=== PATIENT | female | born 1985 | race Caucasian/White ===

== ENCOUNTER → 2016-06-12 | Day surgery (SDC) | payer OTHER ==
[~2016-06-12] VITALS: Ht 170.2 cm; Wt 86.2 kg
[~2016-06-12] MED LIST: BUPIVACAINE HCL 0.25% 30 ML VIAL As Ordered ONE; GLYCOPYRROLATE INJ 0.2 MG/ML 2 ML VIAL As Ordered ONE; HYDROmorphone HCL 2 MG/ML 1ML VIAL (J1170) As Ordered ONE; KETOROLAC 60 MG/2 ML VIAL (J1885) As Ordered ONE; LR 1,000 ML IV SCH; METOCLOPRAMIDE INJ 10MG/2ML VIAL (J2765) As Ordered ONE; MIDAZOLAM INJ 2 MG/2 ML VIAL (J2250) As Ordered ONE; NEOSTIGMINE 1MG/ML 5 ML SYRINGE (J2710) As Ordered ONE; ONDANSETRON 4MG/2ML VIAL (J2405) As Ordered ONE; ONDANSETRON 4MG/2ML VIAL (J2405) IV PRN; PROPOFOL 500 MG/50 ML VIAL As Ordered ONE; ROCURONIUM BROMIDE 50 MG/5 ML VIAL As Ordered ONE; SILVER NITRATE APPLICATOR As Ordered ONE; dexameTHASONE 4 MG/ML 1ML VIAL (J1100) As Ordered ONE; ePHEDrine SULFATE 25 MG/5 ML(5MG/ML) SYRINGE As Ordered ONE; fentaNYL 100 MCG/2 ML INJECTION (J3010) As Ordered ONE; fentaNYL 100 MCG/2 ML INJECTION (J3010) IV PRN
[2016-06-12 06:44] LABS: MEAN CORPUSCULAR HEMOGLOBIN 31.1 pg (27.0-33.0); MEAN CORPUSCULAR VOLUME 91.5 fl (80.0-96.0); RED CELL DISTRIBUTION WIDTH 12.7 % (11.5-14.5); WHITE BLOOD COUNT 4.7 K/mm3 (4.0-10.0)
[2016-06-12 06:56] LABS: CONTROL LINE UCG INT CTR LINE PRESENT
[2016-06-12 11:30] VITALS: BP 94/55
--- NOTE | 2016-06-20 07:09 | RO ---
DATE OF PROCEDURE: 06/12/2016 PREOPERATIVE DIAGNOSIS: Undesired fertility. POSTOPERATIVE DIAGNOSIS: Undesired fertility. PROCEDURE: Bilateral tubal ligation and intrauterine device (IUD) removal. SURGEON: Melissa Garcia MD CONSTRUCTION WORKER: Giselle Chang MD ANESTHESIA: General. ANTIBIOTICS: None indicated. COMPLICATIONS: None. SPECIMENS: Bilateral fallopian tubes and intrauterine device. INDICATIONS: The patient is a 31-year-old female who has completed her childbearing and desires permanent sterilization. FINDINGS: Normal uterus, tubes and ovaries bilaterally. DESCRIPTION OF PROCEDURE: The risks, benefits, indications and alternatives of the procedure were reviewed with the patient. Informed consent was obtained. The patient was taken to the operating room where general anesthesia was obtained without difficulty. The patient was then placed in low lithotomy position using gel padded Raymond stirrups. Exam under anesthesia was then performed, significant for the above findings. The patient was prepped and draped in the normal sterile fashion. The Ochoa catheter was then placed without difficulty. A sterile speculum was placed in the patient's vagina and cervix visualized. A single-tooth tenaculum was used to grasp the material from perhaps through the cervix. Using a [place] the IUD strings were grasped and removed from the uterus. The uterus was then sounded to 8 cm. A [place]ros uterine manipulator was then placed on the anterior lip of the cervix. The single-tooth tenaculum was removed. Attention was then turned to the patient's abdomen where a 5 mm skin incision was made in the inferior aspect of the umbilicus. After injection of 2 mL of 0.25% Marcaine, a 5 mm trocar and sleeve was then carefully introduced into peritoneal cavity under direct visualization at 90 degree angle while tenting up the abdominal wall. The intraperitoneal placement was confirmed under direct visualization with the laparoscope with entry pressure less than 5 mmHg. A pneumoperitoneum was obtained with several liters of CO2 gas, maximum pressure of 50 mmHg. Upon entry into the specimen cavity, structures immediately below the incision were inspected and found to be free of injury. A survey of the patient's abdomen and pelvis were notable for a normal appearing liver, gallbladder and appendix. The uterine fallopian tubes and ovaries were normal in appearance. An additional two 5 mm skin incisions were made in the left and right lower quadrants and the 5 mm trocars were advanced under direct visualization. Attention was then turned to the patient's pelvis. The right fallopian tube was identified and followed out to its fimbriated end. Using a Harmonic scalpel, the mesosalpinx was divided beneath the fallopian tubes and the fallopian tube was then transected. The specimen was removed through one of the 5 mm ports. Same procedure was performed on the right. The surgical sites were noted to be hemostatic. At the completion of the salpingectomy, the gas was then turned off and all CO2 was removed through the patient's abdomen. Trocars were removed. Skin incisions were then reapproximated with #4-0 Monocryl. The uterine manipulator was then removed with excellent hemostasis noted. At the completion of the case, all instruments removed from the patient's vagina and sponge count and needle counts were correct times two. The patient was taken to postanesthesia care unit (PACU) in sable condition.
== END | disposition home or self-care (01) ==
LOC: M SDC 06:01
PROVIDERS: ATTEND Obstetrics & Gynecology
DX: Z30.2 Encounter for sterilization (principal); F17.210 Nicotine dependence, cigarettes, uncomplicated
CPT/HCPCS: 36415; 58301; 58670; 84703; 85027; 86850; 86900; 86901; 88302; J1100; J1170; J1885; J2250; J2405; J2710; J2765; J3010